=== PATIENT | male | born 1955 | race Hispanic/Latino ===

== ENCOUNTER 2023-11-16 05:02 | Inpatient (IN) | payer MEDICARE ==
[2023-11-13 12:56] LABS: BASOPHILS # (AUTO) 0.1 (0.0-0.1); BASOPHILS % 0.6 % (0.0-1.0); EOSINOPHILS # (AUTO) 0.3 (0.0-0.4); EOSINOPHILS % 4.2 % (0.0-6.0); HEMATOCRIT 50.3 % (38.2-49.6); HEMOGLOBIN 16.5 g/dL (14.0-18.0); LYMPHOCYTES # (AUTO) 1.7 (1.0-3.2); LYMPHOCYTES % 21.4 % (18.0-39.1); MEAN CORPUSCULAR HEMOGLOBIN 29.9 pg (28-32); MEAN CORPUSCULAR HGB CONC 32.8 g/dL (31-35); MEAN CORPUSCULAR VOLUME 91.3 fL (81-99); MONOCYTES # (AUTO) 0.7 (0.2-0.8); NEUTROPHILS # (AUTO) 5.1 (2.1-6.9); NEUTROPHILS % 64.5 % (38.7-80.0); PLATELET COUNT 249 x10e3/uL (140-360); RED BLOOD COUNT 5.51 x10e6/uL (4.3-5.7); RED CELL DISTRIBUTION WIDTH 13.1 % (11.7-14.4); WHITE BLOOD COUNT 7.82 x10e3/uL (4.8-10.8)
[2023-11-13 13:17] LABS: ANION GAP 14.2 mmol/L (8-16); CALCIUM 9.6 mg/dL (8.4-10.2); CREATININE, SERUM 0.76 mg/dL (0.72-1.25); POTASSIUM 4.2 mmol/L (3.5-5.1)
[~2023-11-16] VITALS: Ht 177.8 cm; Wt 124.8 kg
[~2023-11-16 05:02] MED LIST: FINASTERIDE5 MG PO; FLOMAX0.4 MG PO; GABAPENTIN300 MG PO; JARDIANCE25 MG PO; MULTI-VITAMIN1 EACH PO; NAPROXEN250 MG PO; OMEPRAZOLE40 MG PO; STOOL SOFTENER50 MG PO
[2023-11-16] MEDS: SODIUM CHLORIDE 0.9% 1000ML 1,000 ML ONE (06:22)
[2023-11-16] MEDS: GENTAMICIN 80MG/NS 100 ML 200 ML IV ONE (06:22)
[2023-11-16] MEDS: CEFTRIAXONE 1 GM VIAL ONE (06:23)
[2023-11-16] MEDS ORDERED: IOPAMIDOL 610MG/1ML 300 MG/ML VIAL IV ONE (06:37)
[2023-11-16] MEDS ORDERED: SUGAMMADEX SODIUM 200 MG/2 ML VIAL IV ONE ×2 (07:19→12:54)
[2023-11-16] MEDS ORDERED: DIPHENHYDRAMINE HCL 25 MG CAP PO PRN (08:45)
[2023-11-16] MEDS ORDERED: ACETAMINOPHEN 1000 MG/100 ML IV PRN (08:45)
[2023-11-16] MEDS ORDERED: ONDANSETRON HCL INJ 2MG/ML 2ML 2 MG/ML VIAL IV PRN ×2 (08:45→10:30)
[2023-11-16] MEDS: FENTANYL CITRATE/PF 100MCG/2 ML INJ ONE (08:48)
[2023-11-16] MEDS: HYDROMORPHONE 1MG/1ML INJ ONE (09:07)
[2023-11-16 09:30] LABS: BASOPHILS # (AUTO) 0.1 (0.0-0.1); BASOPHILS % 0.5 % (0.0-1.0); EOSINOPHILS # (AUTO) 0.4 (0.0-0.4); EOSINOPHILS % 3.6 % (0.0-6.0); HEMATOCRIT 46.3 % (38.2-49.6); HEMOGLOBIN 14.6 g/dL (14.0-18.0); LYMPHOCYTES # (AUTO) 1.9 (1.0-3.2); LYMPHOCYTES % 17.5 % (18.0-39.1); MEAN CORPUSCULAR HEMOGLOBIN 29.9 pg (28-32); MEAN CORPUSCULAR HGB CONC 31.5 g/dL (31-35); MEAN CORPUSCULAR VOLUME 94.9 fL (81-99); MONOCYTES # (AUTO) 0.9 (0.2-0.8); NEUTROPHILS # (AUTO) 7.7 (2.1-6.9); NEUTROPHILS % 70.1 % (38.7-80.0); PLATELET COUNT 256 x10e3/uL (140-360); RED BLOOD COUNT 4.88 x10e6/uL (4.3-5.7); RED CELL DISTRIBUTION WIDTH 13.3 % (11.7-14.4); WHITE BLOOD COUNT 10.98 x10e3/uL (4.8-10.8)
[2023-11-16 09:49] LABS: ANION GAP 11.1 mmol/L (8-16); CALCIUM 7.8 mg/dL (8.4-10.2); CREATININE, SERUM 0.7 mg/dL (0.72-1.25); POTASSIUM 4.1 mmol/L (3.5-5.1)
[2023-11-16] MEDS ORDERED: Morphine 4mg INJECTION 4 MG/ML INJ IV PRN (10:30)
[2023-11-16] MEDS ORDERED: MAGNESIUM SULFATE 2GM/50ML IV ONE (10:30)
[2023-11-16 10:40] VITALS: PULSE 67; RESP 18; O2SAT 96
[2023-11-16] MEDS: PHENAZOPYRIDINE HCL 100 MG TAB PO PRN (11:03)
[2023-11-16] MEDS: SODIUM CHLORIDE 0.9% 1000ML 1,000 ML IV SCH (11:05)
[2023-11-16 11:43] VITALS: BP 127/74; PULSE 66; RESP 17; TEMP 97.9; O2SAT 98
[2023-11-16 11:54] VITALS: BP 127/74; PULSE 66; RESP 17; TEMP 97.9; O2SAT 98
[2023-11-16] MEDS ORDERED: FENTANYL CITRATE/PF 100MCG/2 ML INJ ONE (12:04)
[2023-11-16] MEDS ORDERED: ACETAMINOPHEN 1000 MG/100 ML IV ONE (12:54)
[2023-11-16] MEDS ORDERED: METOCLOPRAMIDE HCL 10 MG/2ML VIAL ONE (12:54)
[2023-11-16] MEDS ORDERED: SUCCINYLCHOLINE CHLORIDE 20 MG/ML 10ML VIAL ONE (12:54)
[2023-11-16] MEDS ORDERED: SODIUM CHLORIDE 0.9% INJ 100 ML BAG ONE (12:54)
[2023-11-16] MEDS ORDERED: PROPOFOL IV EMULSION 10 MG/ML 20 ML VIAL ONE (12:54)
[2023-11-16] MEDS ORDERED: SEVOFLURANE INHAL SOLN 250 ML PEN BTL ONE (12:54)
[2023-11-16] MEDS ORDERED: DEXMEDETOMIDINE HCL 200 MCG/2 ML VIAL ONE (12:54)
[2023-11-16] MEDS ORDERED: LIDOCAINE HCL 2% LOCAL INJ 5 ML SDV VIAL INJ ONE (12:54)
[2023-11-16] MEDS ORDERED: ROCURONIUM BROMIDE 10 MG/ML 5ML VIAL IV ONE (12:54)
[2023-11-16] MEDS ORDERED: ONDANSETRON HCL INJ 2MG/ML 2ML 2 MG/ML VIAL ONE (12:54)
[2023-11-16] MEDS: MAGNESIUM SULFATE 2GM/50ML 50 ML IV ONE (13:58)
[2023-11-16 15:39] VITALS: BP 138/76; PULSE 75; RESP 17; TEMP 98.9; O2SAT 99
[2023-11-16] MEDS: GABAPENTIN 300 MG CAP PO SCH (16:29)
[2023-11-16] MEDS: TAMSULOSIN HCL 0.4 MG CAP PO SCH (16:29)
[2023-11-16 20:00] VITALS: BP 141/71; PULSE 89; RESP 18; TEMP 98.1; O2SAT 93
[2023-11-16 21:00] VITALS: BP 141/71; PULSE 89; RESP 18; TEMP 98.1; O2SAT 93
[2023-11-17] VITALS (13 sets, daily range): BP systolic 127–159; BP diastolic 69–80; PULSE 75–87; RESP 16–20; TEMP 97.1–98.1; O2SAT 96–98
[2023-11-17 05:31] LABS: BASOPHILS % 0.4 % (0.0-1.0); EOSINOPHILS # (AUTO) 0.4 (0.0-0.4); EOSINOPHILS % 3.3 % (0.0-6.0); HEMATOCRIT 48.6 % (38.2-49.6); HEMOGLOBIN 15.2 g/dL (14.0-18.0); LYMPHOCYTES # (AUTO) 1.4 (1.0-3.2); LYMPHOCYTES % 12.5 % (18.0-39.1); MEAN CORPUSCULAR HEMOGLOBIN 29.2 pg (28-32); MEAN CORPUSCULAR HGB CONC 31.3 g/dL (31-35); MEAN CORPUSCULAR VOLUME 93.5 fL (81-99); MONOCYTES % 8.9 % (4.4-11.3); NEUTROPHILS # (AUTO) 8.1 (2.1-6.9); NEUTROPHILS % 74.6 % (38.7-80.0); PLATELET COUNT 267 x10e3/uL (140-360); RED CELL DISTRIBUTION WIDTH 13.2 % (11.7-14.4)
[2023-11-17] MEDS: PANTOPRAZOLE SOD 40 MG TABEC PO SCH (05:44)
[2023-11-17 06:07] LABS: CALCIUM 8.5 mg/dL (8.4-10.2); CREATININE, SERUM 0.7 mg/dL (0.72-1.25)
[2023-11-17] MEDS: ACETAMINOPHEN/CODEINE 300MG - 30MG TAB PO PRN (06:20)
[2023-11-17] MEDS: FINASTERIDE 5 MG TAB PO SCH (08:35)
[2023-11-17] MEDS: MULTIVITAMINS/MINERALS TAB PO SCH (08:37)
[2023-11-17] MEDS ORDERED: ONDANSETRON HCL 4 MG ORAL DISINTEGRATING TAB PO PRN (14:00)
[2023-11-17] MEDS: SENNA-S TABLET PO SCH (17:30)
[2023-11-18] VITALS (8 sets, daily range): BP systolic 134–148; BP diastolic 72–85; PULSE 79–89; RESP 16–19; TEMP 97.7–98.5; O2SAT 93–98
[2023-11-18 05:36] LABS: BASOPHILS % 0.3 % (0.0-1.0); EOSINOPHILS # (AUTO) 0.4 (0.0-0.4); EOSINOPHILS % 4.5 % (0.0-6.0); HEMATOCRIT 47.8 % (38.2-49.6); HEMOGLOBIN 15.4 g/dL (14.0-18.0); LYMPHOCYTES # (AUTO) 1.7 (1.0-3.2); LYMPHOCYTES % 18.9 % (18.0-39.1); MEAN CORPUSCULAR HGB CONC 32.2 g/dL (31-35); MONOCYTES # (AUTO) 0.8 (0.2-0.8); MONOCYTES % 9.3 % (4.4-11.3); NEUTROPHILS # (AUTO) 5.9 (2.1-6.9); NEUTROPHILS % 66.7 % (38.7-80.0); PLATELET COUNT 269 x10e3/uL (140-360); RED BLOOD COUNT 5.14 x10e6/uL (4.3-5.7); RED CELL DISTRIBUTION WIDTH 13.2 % (11.7-14.4); WHITE BLOOD COUNT 8.92 x10e3/uL (4.8-10.8)
[2023-11-18 06:00] LABS: CALCIUM 9.3 mg/dL (8.4-10.2); CREATININE, SERUM 0.69 mg/dL (0.72-1.25)
== END 2023-11-18 20:45 | disposition home or self-care (01) | DRG 713 ==
LOC: OR 05:02 → PACU V 08:43 → MED/SURG2 09:43
PROVIDERS: ADMIT Internal Medicine; ATTEND Internal Medicine
PROC: 0T7D7ZZ Dilation of Urethra, Via Natural or Artificial Opening (ICD-10-PCS; 2023-11-16)
PROC: BT141ZZ Fluoroscopy of Kidneys, Ureters and Bladder using Low Osmolar Contrast (ICD-10-PCS; 2023-11-16)
PROC: 0V508ZZ Destruction of Prostate, Via Natural or Artificial Opening Endoscopic (ICD-10-PCS; principal; 2023-11-16 07:09)
DX: N40.1 Benign prostatic hyperplasia with lower urinary tract symptoms (principal); N13.8 Other obstructive and reflux uropathy; N39.0 Urinary tract infection, site not specified; E11.9 Type 2 diabetes mellitus without complications; I10 Essential (primary) hypertension; E78.5 Hyperlipidemia, unspecified; R31.0 Gross hematuria; N32.81 Overactive bladder; E66.01 Morbid (severe) obesity due to excess calories; Z68.39 Body mass index [BMI] 39.0-39.9, adult; M19.90 Unspecified osteoarthritis, unspecified site; Z79.84 Long term (current) use of oral hypoglycemic drugs; Z87.440 Personal history of urinary (tract) infections; Z93.59 Other cystostomy status; Z87.891 Personal history of nicotine dependence
CPT/HCPCS: 36415; 51701; 51798; 71046; 74420; 80048; 82948; 83735; 85025; 88305; 93005; 94799; C1758; J0330; J0696; J1170; J1580; J2001; J2405; J2765; J3475; J7030; J7050

== ENCOUNTER 2023-11-30 09:48 | Emergency (ER) | payer MEDICARE ==
[~2023-11-30] VITALS: Ht 175.3 cm; Wt 122.9 kg
[2023-11-30 09:58] VITALS: TEMP 98.9
[2023-11-30 11:30] VITALS: PULSE 112; RESP 18; O2SAT 95
[2023-11-30 11:48] LABS: CLARITY,URINE TURBID (CLEAR); COLOR,URINE RED (YELLOW); LEUKOCYTE ESTERASE ,URINE NEGATIVE (NEGATIVE); NITRITE,URINE NEGATIVE (NEGATIVE); PH,URINE 7 (5 - 7); PROTEIN,URINE DIPSTICK >=300 (NEGATIVE)
[2023-11-30 11:49] LABS: BACTERIA,URINE RARE /HPF; BILIRUBIN,URINE NEGATIVE (NEGATIVE); GLUCOSE, URINE 500 (NEGATIVE); KETONES,URINE NEGATIVE (NEGATIVE); RBC,URINE >50 /HPF (0-5); URINE UROBILINOGEN 0.2 mg/dL (0.2 - 1); WBC,URINE (MAN) 0-5 /HPF (0-5)
== END 2023-11-30 13:15 | disposition home or self-care (01) ==
LOC: ER 10:00
DX: R33.9 Retention of urine, unspecified (principal); R31.9 Hematuria, unspecified; E11.9 Type 2 diabetes mellitus without complications
CPT/HCPCS: 51700; 51798; 81001; 87086; 99283

== ENCOUNTER 2023-12-01 09:51 | Emergency (ER) | payer MEDICARE ==
[~2023-12-01] VITALS: Ht 175.3 cm; Wt 122.9 kg
[2023-12-01 14:56] VITALS: PULSE 93; RESP 16; TEMP 98.7; O2SAT 100
== END 2023-12-01 15:20 | disposition home or self-care (01) ==
LOC: ER 10:09
DX: Z46.6 Encounter for fitting and adjustment of urinary device (principal); E11.9 Type 2 diabetes mellitus without complications
CPT/HCPCS: 51700; 51703; 74176; 99284

== ENCOUNTER 2023-12-02 17:26 | Inpatient (IN) | payer MEDICARE ==
[~2023-12-02] VITALS: Ht 175.3 cm; Wt 122.9 kg
[2023-12-02 17:45] LABS: BASOPHILS % 0.5 % (0.0-1.0); EOSINOPHILS # (AUTO) 0.3 (0.0-0.4); EOSINOPHILS % 3.9 % (0.0-6.0); LYMPHOCYTES # (AUTO) 1.2 (1.0-3.2); LYMPHOCYTES % 13.8 % (18.0-39.1); MEAN CORPUSCULAR HEMOGLOBIN 29.9 pg (28-32); MEAN CORPUSCULAR HGB CONC 32.6 g/dL (31-35); MEAN CORPUSCULAR VOLUME 91.6 fL (81-99); MONOCYTES # (AUTO) 1.2 (0.2-0.8); MONOCYTES % 13.9 % (4.4-11.3); NEUTROPHILS # (AUTO) 5.8 (2.1-6.9); NEUTROPHILS % 67.5 % (38.7-80.0); PLATELET COUNT 255 x10e3/uL (140-360); RED BLOOD COUNT 5.02 x10e6/uL (4.3-5.7); RED CELL DISTRIBUTION WIDTH 13.2 % (11.7-14.4); WHITE BLOOD COUNT 8.57 x10e3/uL (4.8-10.8)
[2023-12-02] MEDS ORDERED: ONDANSETRON HCL INJ 2MG/ML 2ML 2 MG/ML VIAL IV PRN (17:45)
[2023-12-02] MEDS ORDERED: Morphine 2mg Syringe 2 MG/ML SYR IV PRN (17:45)
[2023-12-02 18:01] LABS: ALBUMIN 3.9 g/dL (3.5-5.0); ALBUMIN/GLOBULIN RATIO 1.1 (0.8-2.0); ANION GAP 11.2 mmol/L (8-16); BILIRUBIN,TOTAL 0.2 mg/dL (0.2-1.2); CALCIUM 9.2 mg/dL (8.4-10.2); POTASSIUM 4.2 mmol/L (3.5-5.1); TOTAL PROTEIN 7.5 g/dL (6.5-8.1)
[2023-12-02 19:25] VITALS: PULSE 89; RESP 16; TEMP 98.3
[2023-12-02] MEDS: SODIUM CHLORIDE 0.9% 1000ML 1,000 ML IV SCH (19:33)
[2023-12-02 20:45] VITALS: BP 132/79; PULSE 87; RESP 20; TEMP 98.3; O2SAT 97
[2023-12-02 21:00] VITALS: BP 134/71; PULSE 78; RESP 19; TEMP 98.1; O2SAT 100
[2023-12-03] VITALS (7 sets, daily range): BP systolic 127–173; BP diastolic 63–93; PULSE 82–96; RESP 18–20; TEMP 97.5–98.2; O2SAT 96–100
[2023-12-03 05:32] LABS: BASOPHILS % 0.5 % (0.0-1.0); EOSINOPHILS # (AUTO) 0.4 (0.0-0.4); EOSINOPHILS % 5.6 % (0.0-6.0); HEMATOCRIT 43.7 % (38.2-49.6); HEMOGLOBIN 13.9 g/dL (14.0-18.0); LYMPHOCYTES # (AUTO) 1.4 (1.0-3.2); LYMPHOCYTES % 22.3 % (18.0-39.1); MEAN CORPUSCULAR HEMOGLOBIN 29.3 pg (28-32); MEAN CORPUSCULAR HGB CONC 31.8 g/dL (31-35); MEAN CORPUSCULAR VOLUME 92.2 fL (81-99); MONOCYTES % 16.6 % (4.4-11.3); NEUTROPHILS # (AUTO) 3.4 (2.1-6.9); NEUTROPHILS % 54.7 % (38.7-80.0); PLATELET COUNT 268 x10e3/uL (140-360); RED BLOOD COUNT 4.74 x10e6/uL (4.3-5.7); RED CELL DISTRIBUTION WIDTH 13.1 % (11.7-14.4); WHITE BLOOD COUNT 6.22 x10e3/uL (4.8-10.8)
[2023-12-03 06:43] LABS: ALBUMIN 3.5 g/dL (3.5-5.0); BILIRUBIN,TOTAL 0.3 mg/dL (0.2-1.2); CREATININE, SERUM 0.71 mg/dL (0.72-1.25); TOTAL PROTEIN 6.9 g/dL (6.5-8.1)
[2023-12-03 08:56] LABS: POTASSIUM 3.6 mmol/L (3.5-5.1)
[2023-12-03 08:57] LABS: CALCIUM 9.3 mg/dL (8.4-10.2)
[2023-12-03] MEDS ORDERED: DEXTROSE 50% SYRINGE 50 ML IV PRN (10:00)
[2023-12-03 10:15] LABS: ANION GAP 15.6 mmol/L (8-16)
[2023-12-03] MEDS: INSULIN LISPRO 100 UNIT/1 ML 3ML VIAL SQ SCH (11:30)
[2023-12-03] MEDS: GABAPENTIN 300 MG CAP PO SCH (16:40)
[2023-12-03] MEDS: SENNA-S TABLET PO SCH (16:40)
[2023-12-03] MEDS: BENZONATATE 100 MG CAP PO PRN (22:26)
[2023-12-04] VITALS (9 sets, daily range): BP systolic 135–160; BP diastolic 60–83; PULSE 79–88; RESP 18–20; TEMP 97.5–98.5; O2SAT 97–100
[2023-12-04 05:46] LABS: BASOPHILS % 0.6 % (0.0-1.0); EOSINOPHILS # (AUTO) 0.5 (0.0-0.4); EOSINOPHILS % 9.1 % (0.0-6.0); HEMATOCRIT 44.5 % (38.2-49.6); HEMOGLOBIN 13.6 g/dL (14.0-18.0); LYMPHOCYTES # (AUTO) 1.3 (1.0-3.2); LYMPHOCYTES % 24.6 % (18.0-39.1); MEAN CORPUSCULAR HEMOGLOBIN 29.1 pg (28-32); MEAN CORPUSCULAR HGB CONC 30.6 g/dL (31-35); MEAN CORPUSCULAR VOLUME 95.3 fL (81-99); MONOCYTES # (AUTO) 0.7 (0.2-0.8); NEUTROPHILS # (AUTO) 2.9 (2.1-6.9); NEUTROPHILS % 53.3 % (38.7-80.0); PLATELET COUNT 277 x10e3/uL (140-360); RED BLOOD COUNT 4.67 x10e6/uL (4.3-5.7); RED CELL DISTRIBUTION WIDTH 13.1 % (11.7-14.4)
[2023-12-04] MEDS: MULTIVITAMINS/MINERALS TAB PO SCH (08:27)
[2023-12-04] MEDS: TAMSULOSIN HCL 0.4 MG CAP PO SCH (08:27)
[2023-12-04] MEDS: FINASTERIDE 5 MG TAB PO SCH (08:28)
[2023-12-04] MEDS: PANTOPRAZOLE SOD 40 MG TABEC PO SCH (08:28)
[2023-12-04 15:47] LABS: CALCIUM 8.7 mg/dL (8.4-10.2); CREATININE, SERUM 0.71 mg/dL (0.72-1.25); POTASSIUM 4.2 mmol/L (3.5-5.1)
[2023-12-04 15:56] LABS: ANION GAP 17.2 mmol/L (8-16)
[2023-12-05] VITALS (8 sets, daily range): BP systolic 142–152; BP diastolic 68–91; PULSE 62–85; RESP 17–18; TEMP 97–98; O2SAT 97–99
[2023-12-06] VITALS: BP 157/75; PULSE 78; RESP 18; TEMP 97.9; O2SAT 99
[2023-12-06 04:00] VITALS: BP 145/76; PULSE 80; RESP 18; TEMP 97.9; O2SAT 98
[2023-12-06] MEDS ORDERED: IOPAMIDOL 610MG/1ML 300 MG/ML VIAL IV ONE (07:08)
[2023-12-06] MEDS: FENTANYL CITRATE/PF 100MCG/2 ML INJ ONE (08:25)
[2023-12-06] MEDS ORDERED: ACETAMINOPHEN 1000 MG/100 ML IV PRN (08:45)
[2023-12-06] MEDS ORDERED: ONDANSETRON HCL INJ 2MG/ML 2ML 2 MG/ML VIAL IV PRN (08:45)
[2023-12-06] MEDS ORDERED: PHENAZOPYRIDINE HCL 100 MG TAB PO PRN (08:45)
[2023-12-06 09:13] VITALS: BP 139/79; PULSE 88; RESP 18; TEMP 98; O2SAT 97
[2023-12-06] MEDS: CEFTRIAXONE 2 GM in SODIUM CHLORIDE 0.9% 100 ML IV SCH (09:43)
[2023-12-06] MEDS: SODIUM CHLORIDE 0.9% 1000ML 1,000 ML IV SCH (09:44)
[2023-12-06] MEDS: HYDROCODONE/APAP 10MG-325MG TAB PO PRN (10:00)
[2023-12-06] MEDS ORDERED: FENTANYL CITRATE/PF 100MCG/2 ML INJ ONE (10:06)
[2023-12-06] MEDS ORDERED: Morphine 10mg syringe 10 MG/ML INJ ONE (10:06)
[2023-12-06] MEDS ORDERED: ONDANSETRON HCL INJ 2MG/ML 2ML 2 MG/ML VIAL ONE (10:12)
[2023-12-06] MEDS ORDERED: LIDOCAINE HCL 2% LOCAL INJ 5 ML SDV VIAL INJ ONE (10:12)
[2023-12-06] MEDS ORDERED: PROPOFOL IV EMULSION 10 MG/ML 20 ML VIAL ONE (10:12)
[2023-12-06] MEDS ORDERED: EPHEDRINE SULFATE INJ 50 MG/ML VIAL ONE (10:12)
[2023-12-06] MEDS ORDERED: SEVOFLURANE INHAL SOLN 250 ML PEN BTL ONE (10:12)
[2023-12-06] MEDS ORDERED: DEXAMETHASONE SOD PHOS INJ 4 MG/ML SDV ONE (10:12)
[2023-12-06] MEDS ORDERED: METOCLOPRAMIDE HCL 10 MG/2ML VIAL ONE (10:12)
[2023-12-06 20:00] VITALS: BP 141/85; PULSE 91; RESP 18; TEMP 97.8; O2SAT 97
[2023-12-06 21:00] VITALS: BP 141/85; PULSE 91; RESP 18; TEMP 97.8; O2SAT 97
[2023-12-06] MEDS: ACETAMINOPHEN/CODEINE 300MG - 30MG TAB PO PRN (21:14)
[2023-12-07] VITALS (10 sets, daily range): BP systolic 135–168; BP diastolic 68–86; PULSE 77–92; RESP 18–20; TEMP 97.7–98.3; O2SAT 96–99
[2023-12-07 05:57] LABS: BASOPHILS # (AUTO) 0.1 (0.0-0.1); BASOPHILS % 0.5 % (0.0-1.0); EOSINOPHILS # (AUTO) 0.3 (0.0-0.4); EOSINOPHILS % 2.6 % (0.0-6.0); HEMATOCRIT 42.7 % (38.2-49.6); HEMOGLOBIN 13.5 g/dL (14.0-18.0); LYMPHOCYTES # (AUTO) 2.1 (1.0-3.2); LYMPHOCYTES % 21.8 % (18.0-39.1); MEAN CORPUSCULAR HEMOGLOBIN 29.5 pg (28-32); MEAN CORPUSCULAR HGB CONC 31.6 g/dL (31-35); MEAN CORPUSCULAR VOLUME 93.4 fL (81-99); MONOCYTES # (AUTO) 0.9 (0.2-0.8); MONOCYTES % 9.3 % (4.4-11.3); NEUTROPHILS # (AUTO) 6.3 (2.1-6.9); NEUTROPHILS % 65.3 % (38.7-80.0); PLATELET COUNT 313 x10e3/uL (140-360); RED BLOOD COUNT 4.57 x10e6/uL (4.3-5.7); RED CELL DISTRIBUTION WIDTH 12.7 % (11.7-14.4); WHITE BLOOD COUNT 9.64 x10e3/uL (4.8-10.8)
[2023-12-07 06:22] LABS: ANION GAP 12.8 mmol/L (8-16); CALCIUM 9.1 mg/dL (8.4-10.2); CREATININE, SERUM 0.69 mg/dL (0.72-1.25); POTASSIUM 3.8 mmol/L (3.5-5.1)
[2023-12-08] VITALS (13 sets, daily range): BP systolic 138–155; BP diastolic 64–84; PULSE 77–89; RESP 18–20; TEMP 97.6–98.8; O2SAT 94–100
[2023-12-08 06:26] LABS: BASOPHILS % 0.4 % (0.0-1.0); EOSINOPHILS # (AUTO) 0.5 (0.0-0.4); EOSINOPHILS % 5.1 % (0.0-6.0); HEMATOCRIT 43.2 % (38.2-49.6); HEMOGLOBIN 13.5 g/dL (14.0-18.0); LYMPHOCYTES # (AUTO) 2.1 (1.0-3.2); LYMPHOCYTES % 22.8 % (18.0-39.1); MEAN CORPUSCULAR HEMOGLOBIN 28.9 pg (28-32); MEAN CORPUSCULAR HGB CONC 31.3 g/dL (31-35); MEAN CORPUSCULAR VOLUME 92.5 fL (81-99); MONOCYTES # (AUTO) 0.7 (0.2-0.8); MONOCYTES % 7.8 % (4.4-11.3); NEUTROPHILS # (AUTO) 5.8 (2.1-6.9); NEUTROPHILS % 63.1 % (38.7-80.0); PLATELET COUNT 339 x10e3/uL (140-360); RED BLOOD COUNT 4.67 x10e6/uL (4.3-5.7); RED CELL DISTRIBUTION WIDTH 12.7 % (11.7-14.4); WHITE BLOOD COUNT 9.18 x10e3/uL (4.8-10.8)
[2023-12-08 06:52] LABS: ANION GAP 12.8 mmol/L (8-16); CALCIUM 8.9 mg/dL (8.4-10.2); CREATININE, SERUM 0.72 mg/dL (0.72-1.25); POTASSIUM 3.8 mmol/L (3.5-5.1)
[2023-12-08] MEDS ORDERED: SODIUM CHLORIDE 0.9% 100 ML ONE (09:27)
[2023-12-09] VITALS (7 sets, daily range): BP systolic 132–150; BP diastolic 69–78; PULSE 81–98; RESP 20–22; TEMP 97.7–98.6; O2SAT 94–98
[2023-12-09 05:58] LABS: BASOPHILS # (AUTO) 0.1 (0.0-0.1); BASOPHILS % 0.5 % (0.0-1.0); EOSINOPHILS # (AUTO) 0.4 (0.0-0.4); EOSINOPHILS % 3.9 % (0.0-6.0); HEMATOCRIT 44.2 % (38.2-49.6); HEMOGLOBIN 14.4 g/dL (14.0-18.0); LYMPHOCYTES # (AUTO) 2.1 (1.0-3.2); LYMPHOCYTES % 21.4 % (18.0-39.1); MEAN CORPUSCULAR HEMOGLOBIN 29.6 pg (28-32); MEAN CORPUSCULAR HGB CONC 32.6 g/dL (31-35); MEAN CORPUSCULAR VOLUME 90.9 fL (81-99); MONOCYTES # (AUTO) 0.9 (0.2-0.8); MONOCYTES % 8.7 % (4.4-11.3); NEUTROPHILS # (AUTO) 6.4 (2.1-6.9); NEUTROPHILS % 64.7 % (38.7-80.0); PLATELET COUNT 366 x10e3/uL (140-360); RED BLOOD COUNT 4.86 x10e6/uL (4.3-5.7); RED CELL DISTRIBUTION WIDTH 12.8 % (11.7-14.4)
[2023-12-09 06:27] LABS: ANION GAP 14.3 mmol/L (8-16); CALCIUM 9.7 mg/dL (8.4-10.2); CREATININE, SERUM 0.69 mg/dL (0.72-1.25); POTASSIUM 4.3 mmol/L (3.5-5.1)
[2023-12-09] MEDS ORDERED: ONDANSETRON HCL 4 MG ORAL DISINTEGRATING TAB PO PRN (13:00)
== END 2023-12-09 13:30 | disposition home or self-care (01) | DRG 908 ==
LOC: ER 17:30 → ERHOLD 17:39 → MED/SURG3 20:36 → OBSVTOIN 12-03 09:56
PROVIDERS: ADMIT Internal Medicine; ATTEND Internal Medicine
PROC: BT101ZZ Fluoroscopy of Bladder using Low Osmolar Contrast (ICD-10-PCS; 2023-12-06)
PROC: BT141ZZ Fluoroscopy of Kidneys, Ureters and Bladder using Low Osmolar Contrast (ICD-10-PCS; 2023-12-06)
PROC: 0W3R8ZZ Control Bleeding in Genitourinary Tract, Via Natural or Artificial Opening Endoscopic (ICD-10-PCS; principal; 2023-12-06 07:14)
DX: N99.820 Postprocedural hemorrhage of a genitourinary system organ or structure following a genitourinary system procedure (principal); D62 Acute posthemorrhagic anemia; T83.83XA Hemorrhage due to genitourinary prosthetic devices, implants and grafts, initial encounter; T83.89XA Other specified complication of genitourinary prosthetic devices, implants and grafts, initial encounter; Z68.41 Body mass index [BMI] 40.0-44.9, adult; R31.0 Gross hematuria; R33.9 Retention of urine, unspecified; E66.01 Morbid (severe) obesity due to excess calories; Z90.79 Acquired absence of other genital organ(s); Y84.6 Urinary catheterization as the cause of abnormal reaction of the patient, or of later complication, without mention of misadventure at the time of the procedure
CPT/HCPCS: 36415; 51798; 74420; 80048; 80053; 82948; 85025; 94799; 96372; 99252; 99284; C1758; G0378; J0696; J1100; J2001; J2270; J2405; J2765; J7030; J7050